=== PATIENT | female | born 2000 | race Caucasian/White ===

== ENCOUNTER 2020-07-18 15:21 | Emergency (ER) | payer BC ==
[2020-07-18 15:29] VITALS: TEMP 98
[2020-07-18] MEDS ORDERED: ONDANSETRON 4 MG/2 ML VIAL IVP STA (15:47)
[2020-07-18] MEDS ORDERED: SODIUM CHLORIDE 0.9% 1,000 ML IV STA (15:47)
[2020-07-18 16:11] LABS: Basophils % (A) 1 %; Eosinophils % (A) 1 %; HGB 13.2 gm/dL (11.4-16.0); Lymphocytes % (A) 48 %; MCH 30.9 pg (25.0-35.0); MCHC 33.7 g/dL (31.0-37.0); MCV 91.6 fL (80.0-100.0); Mean Platelet Volume 7.4; Monocytes # (A) 0.2 k/uL (0-1.0); Monocytes % (A) 4 %; Neutrophils # (A) 1.8 k/uL (1.3-7.7); Neutrophils % (A) 44 %; Platelet Count 257 k/uL (150-450); RBC 4.26 m/uL (3.80-5.40); WBC 4.1 k/uL (4.0-11.0)
[2020-07-18 16:12] LABS: Appearance,Urine Clear (Clear); Bilirubin,Urine Negative (Negative); Blood,Urine Negative (Negative); Color,Urine Light Yellow; Glucose,Urine (UA) Negative (Negative); Ketones,Urine Negative (Negative); Leukocyte Esterase,Urine Negative (Negative); Nitrite,Urine Negative (Negative); PH, Urine 6.5 (5.0-8.0); Protein,Urine Negative (Negative); Specific Gravity,Urine 1.006 (1.001-1.035); Urobilinogen,Urine <2.0 mg/dL (<2.0)
[2020-07-18 16:19] LABS: African American GFR (CKD) >90 (>60 ml/min/1.73 sqM); Anion Gap 9 mmol/L; Blood Urea Nitrogen 10 mg/dL (7-17); Calcium 9.3 mg/dL (8.4-10.2); Carbon Dioxide 26 mmol/L (22-30); Chloride 105 mmol/L (98-107); Glucose 89 mg/dL (74-99); Non-African American GFR(CKD) >90 (>60 ml/min/1.73 sqM); Sodium 140 mmol/L (137-145); Total Protein 7.7 g/dL (6.3-8.2)
[2020-07-18 16:20] LABS: ALT 10 U/L (4-34); AST 22 U/L (14-36); Albumin 4.8 g/dL (3.5-5.0); Alkaline Phosphatase 52 U/L (38-126); Amylase 59 U/L (30-110); Total Bilirubin 1.1 mg/dL (0.2-1.3)
[2020-07-18] MEDS ORDERED: diphenhydrAMINE 50 MG/ML 1 ML VIAL IVP STA (16:50)
[2020-07-18] MEDS ORDERED: METOCLOPRAMIDE 5 MG/ML 2 ML VIAL IVP STA (16:50)
--- NOTE | 2020-07-18 16:54 | ED ---
General Adult HPI - General Chief complaint: Abdominal Pain Stated complaint: abdominal Pain Time Seen by Provider: 07/18/20 15:33 Source: patient, RN notes reviewed Mode of arrival: ambulatory Limitations: no limitations - History of Present Illness Initial comments: 20-year-old female with a past medical history of IBS presents to the emergency room for nausea vomiting diarrhea. Patient reports that on Tuesday night she ate seafood at a restaurant. States the next day her and her friend started to feel nauseous. Patient reports that she was nauseous all day on Tuesday. She started to have diarrhea and vomiting yesterday. Patient reports that diarrhea and vomiting have continued today. Patient states she is really having minimal abdominal discomfort mostly in the epigastric area. Otherwise denies abdominal pain. Denies fevers.Patient has no other complaints at this time including shortness of breath, chest pain, abdominal pain, headache, or visual changes. - Related Data Previous Rx's Medication Instructions Recorded Ondansetron [Zofran ODT] 4 mg PO Q8HR PRN #15 tab 07/18/20 Allergies Allergy/AdvReac Type Severity Reaction Status Date / Time [place] And Derivatives Allergy Nausea & Verified 07/18/20 15:57 [[place]] Vomiting peppermint Allergy Anaphylaxis Verified 07/18/20 15:57 Review of Systems ROS Statement: Those systems with pertinent positive or pertinent negative responses have been documented in the HPI. ROS Other: All systems not noted in ROS Statement are negative. Past Medical History Past Medical History: No Reported History Additional Past Medical History / Comment(s): IBS, internal and external hemorrhoids History of Any Multi-Drug Resistant Organisms: None Reported Past Surgical History: No Surgical Hx Reported Additional Past Surgical History / Comment(s): colonoscopy Past Psychological History: Anxiety, Depression Smoking Status: Never smoker Past Alcohol Use History: Occasional Past Drug Use History: Marijuana General Exam Limitations: no limitations General appearance: alert, in no apparent distress Head exam: Present: atraumatic, normocephalic, normal inspection Eye exam: Present: normal appearance, PERRL, EOMI. Absent: scleral icterus, conjunctival injection, periorbital swelling ENT exam: Present: normal exam, mucous membranes moist Neck exam: Present: normal inspection, full ROM. Absent: tenderness, meningismus, lymphadenopathy Respiratory exam: Present: normal lung sounds bilaterally. Absent: respiratory distress, wheezes, rales, rhonchi, stridor Cardiovascular Exam: Present: regular rate, normal rhythm, normal heart sounds. Absent: systolic murmur, diastolic murmur, rubs, gallop, clicks GI/Abdominal exam: Present: soft, normal bowel sounds. Absent: distended, tenderness, guarding, rebound, rigid Neurological exam: Present: alert Course Vital Signs 07/18/20 15:26 Temperature 98 F Pulse Rate 100 Respiratory 18 Rate Blood Pressure 130/93 O2 Sat by Pulse 100 Oximetry Medical Decision Making - Medical Decision Making Vitals are stable. Physical exam is unremarkable. No significant abdominal tenderness.. CBC CMP and amylase and lipase are all within normal limits. Urinalysis is negative. HCG is negative. Patient was given Zofran and had some improvement in nausea however still continued to have mild nausea. No episodes of vomiting. She was given Reglan. Patient will be discharged home after fluids with Zofran. She will follow up with her doctor. She will return here for any worsening symptoms. - Lab Data Result diagrams: 07/18/20 16:00 07/18/20 16:00 Lab Results 07/18/20 07/18/20 07/18/20 Range/Units 16:00 16:00 16:00 WBC 4.1 (4.0-11.0) k/uL RBC 4.26 (3.80-5.40) m/uL Hgb 13.2 (11.4-16.0) gm/dL Hct 39.0 (34.0-46.0) % MCV 91.6 (80.0-100.0) fL MCH 30.9 (25.0-35.0) pg MCHC 33.7 (31.0-37.0) g/dL RDW 12.0 (11.5-15.5) % Plt Count 257 (150-450) k/uL Neutrophils % 44 % Lymphocytes % 48 % Monocytes % 4 % Eosinophils % 1 % Basophils % 1 % Neutrophils # 1.8 (1.3-7.7) k/uL Lymphocytes # 2.0 (1.0-4.8) k/uL Monocytes # 0.2 (0-1.0) k/uL Eosinophils # 0.0 (0-0.7) k/uL Basophils # 0.0 (0-0.2) k/uL Sodium (137-145) mmol/L Potassium (3.5-5.1) mmol/L Chloride (98-107) mmol/L Carbon Dioxide (22-30) mmol/L Anion Gap mmol/L BUN (7-17) mg/dL Creatinine (0.52-1.04) mg/dL Est GFR (CKD-EPI)AfAm (>60 ml/min/1.73 sqM) Est GFR (CKD-EPI)NonAf (>60 ml/min/1.73 sqM) Glucose (74-99) mg/dL Calcium (8.4-10.2) mg/dL Total Bilirubin (0.2-1.3) mg/dL AST (14-36) U/L ALT (4-34) U/L Alkaline Phosphatase (38-126) U/L Total Protein (6.3-8.2) g/dL Albumin (3.5-5.0) g/dL Amylase (30-110) U/L Lipase (23-300) U/L Urine Color Light Yellow Urine Appearance Clear (Clear) Urine pH 6.5 (5.0-8.0) Ur Specific [place] 1.006 (1.001-1.035) Urine Protein Negative (Negative) Urine Glucose (UA) Negative (Negative) Urine Ketones Negative (Negative) Urine Blood Negative (Negative) Urine Nitrite Negative (Negative) Urine Bilirubin Negative (Negative) Urine Urobilinogen <2.0 (<2.0) mg/dL Ur Leukocyte Esterase Negative (Negative) Urine HCG, Qual Not Detected (Not Detectd) 07/18/20 Range/Units 16:00 WBC (4.0-11.0) k/uL RBC (3.80-5.40) m/uL Hgb (11.4-16.0) gm/dL Hct (34.0-46.0) % MCV (80.0-100.0) fL MCH (25.0-35.0) pg MCHC (31.0-37.0) g/dL RDW (11.5-15.5) % Plt Count (150-450) k/uL Neutrophils % % Lymphocytes % % Monocytes % % Eosinophils % % Basophils % % Neutrophils # (1.3-7.7) k/uL Lymphocytes # (1.0-4.8) k/uL Monocytes # (0-1.0) k/uL Eosinophils # (0-0.7) k/uL Basophils # (0-0.2) k/uL Sodium 140 (137-145) mmol/L Potassium 4.0 (3.5-5.1) mmol/L Chloride 105 (98-107) mmol/L Carbon Dioxide 26 (22-30) mmol/L Anion Gap 9 mmol/L BUN 10 (7-17) mg/dL Creatinine 0.85 (0.52-1.04) mg/dL Est GFR (CKD-EPI)AfAm >90 (>60 ml/min/1.73 sqM) Est GFR (CKD-EPI)NonAf >90 (>60 ml/min/1.73 sqM) Glucose 89 (74-99) mg/dL Calcium 9.3 (8.4-10.2) mg/dL Total Bilirubin 1.1 (0.2-1.3) mg/dL AST 22 (14-36) U/L ALT 10 (4-34) U/L Alkaline Phosphatase 52 (38-126) U/L Total Protein 7.7 (6.3-8.2) g/dL Albumin 4.8 (3.5-5.0) g/dL Amylase 59 (30-110) U/L Lipase 157 (23-300) U/L Urine Color Urine Appearance (Clear) Urine pH (5.0-8.0) Ur Specific [place] (1.001-1.035) Urine Protein (Negative) Urine Glucose (UA) (Negative) Urine Ketones (Negative) Urine Blood (Negative) Urine Nitrite (Negative) Urine Bilirubin (Negative) Urine Urobilinogen (<2.0) mg/dL Ur Leukocyte Esterase (Negative) Urine HCG, Qual (Not Detectd) Disposition Clinical Impression: Nausea vomiting and diarrhea Disposition: HOME SELF-CARE Condition: Good Instructions (If sedation given, give patient instructions): Acute Nausea and Vomiting (ED), Acute Diarrhea (ED) Additional Instructions: Take Zofran as needed for nausea. Drink plenty of fluids. Follow-up with your doctor in one to 2 days for a recheck. If symptoms are worsening return to the emergency room. Prescriptions: Ondansetron [Zofran ODT] 4 mg PO Q8HR PRN #15 tab PRN Reason: Nausea Is patient prescribed a controlled substance at d/c from ED?: No Referrals: Josh Everett MD [REFERRING] - 1-2 days Time of Disposition: 16:53
[2020-07-18 17:36] VITALS: BP 132/87; PULSE 71; RESP 16
== END 2020-07-18 17:36 | disposition home or self-care (01) ==
LOC: EC 15:21
DX: R11.2 Nausea with vomiting, unspecified (principal); R19.7 Diarrhea, unspecified; Z91.018 Allergy to other foods
CPT/HCPCS: 36415; 80053; 82150; 83690; 85025; 81003; 81025; 99283; 96374; 96375 ×2; 96361; J1200; J2765; J2405

== ENCOUNTER 2020-07-19 21:26 | Emergency (ER) | payer BC ==
[2020-07-19 21:51] VITALS: RESP 18
[2020-07-19] MEDS ORDERED: SODIUM CHLORIDE 0.9% 500 ML 500 ML IV STA (22:09)
[2020-07-19] MEDS ORDERED: PROMETHAZINE INJ 25 MG in SODIUM CHLORIDE 0.9% 50 ML IVPB ONE (22:30)
--- NOTE | 2020-07-19 22:31 | ED ---
Nausea/Vomiting/Diarrhea HPI - General Chief complaint: Nausea/Vomiting/Diarrhea Stated complaint: Nausea, vomiting Time Seen by Provider: 07/19/20 22:03 Source: patient Mode of arrival: ambulatory Limitations: no limitations - History of Present Illness Initial comments: This patient is a 20-year-old woman who presents to be evaluated for vomiting diarrhea and abdominal pain. The patient states that her symptoms started Tuesday night with diarrhea. Over the course of the following day she had about 9 watery bowel movements. She also was noting some diffuse abdominal cramping that was intermittent. On the following day she began having vomiting as well. Patient was seen here, had Zofran and IV fluids and was feeling a little better. When she went home she had a resumption of the vomiting and so presents to have reevaluation. MD complaint: nausea, vomiting, diarrhea, abdominal pain Onset/Timin -: days(s) Description of Vomiting: food contents Description of Diarrhea: water Associated Abdominal Pain: Yes Location: diffuse Severity: mild Quality: cramping Consistency: intermittent Improves with: none Worsens with: none Associated Symptoms: denies other symptoms - Related Data Previous Rx's Medication Instructions Recorded Ondansetron [Zofran ODT] 4 mg PO Q8HR PRN #15 tab 07/18/20 Promethazine [Phenergan] 25 mg PO Q6HR PRN #12 tablet 07/20/20 Allergies Allergy/AdvReac Type Severity Reaction Status Date / Time [place] And Derivatives Allergy Nausea & Verified 07/19/20 21:51 [[place]] Vomiting peppermint Allergy Anaphylaxis Verified 07/19/20 21:51 Review of Systems ROS Statement: Those systems with pertinent positive or pertinent negative responses have been documented in the HPI. ROS Other: All systems not noted in ROS Statement are negative. Constitutional: Denies: fever, chills Respiratory: Denies: cough, dyspnea Cardiovascular: Denies: chest pain, palpitations, edema Gastrointestinal: Reports: abdominal pain, nausea, vomiting, diarrhea. Denies: hematemesis, melena, hematochezia Genitourinary: Denies: dysuria, frequency, hematuria, discharge, abnormal menses Musculoskeletal: Denies: back pain Skin: Denies: rash Neurological: Denies: headache, weakness, numbness Past Medical History Past Medical History: No Reported History Additional Past Medical History / Comment(s): IBS, internal and external hemorrhoids History of Any Multi-Drug Resistant Organisms: None Reported Past Surgical History: No Surgical Hx Reported Additional Past Surgical History / Comment(s): colonoscopy Past Psychological History: Anxiety, Depression Smoking Status: Never smoker Past Alcohol Use History: Occasional Past Drug Use History: Marijuana General Exam Limitations: no limitations General appearance: alert, in no apparent distress Head exam: Present: atraumatic, normocephalic Eye exam: Present: normal appearance. Absent: scleral icterus, conjunctival injection ENT exam: Present: normal oropharynx Respiratory exam: Present: normal lung sounds bilaterally. Absent: respiratory distress, wheezes, rales, rhonchi, stridor Cardiovascular Exam: Present: regular rate, normal rhythm, normal heart sounds. Absent: systolic murmur, diastolic murmur, rubs, gallop GI/Abdominal exam: Present: soft, normal bowel sounds. Absent: distended, tenderness, guarding, rebound, rigid, mass, pulsatile mass, hernia Extremities exam: Present: normal inspection, normal capillary refill. Absent: pedal edema, calf tenderness Back exam: Present: normal inspection. Absent: CVA tenderness (R), CVA tenderness (L) Neurological exam: Present: alert Skin exam: Present: warm, dry, intact, normal color. Absent: rash Course Vital Signs 07/19/20 21:48 Temperature 98.5 F Pulse Rate 83 Respiratory 18 Rate Blood Pressure 125/82 O2 Sat by Pulse 99 Oximetry Medical Decision Making - Lab Data Result diagrams: 07/19/20 22:14 07/19/20 22:14 Lab Results 07/19/20 07/19/20 07/19/20 Range/Units 22:14 22:14 22:14 WBC 5.2 (4.0-11.0) k/uL RBC 4.34 (3.80-5.40) m/uL Hgb 13.3 (11.4-16.0) gm/dL Hct 40.0 (34.0-46.0) % MCV 92.2 (80.0-100.0) fL MCH 30.7 (25.0-35.0) pg MCHC 33.2 (31.0-37.0) g/dL RDW 12.6 (11.5-15.5) % Plt Count 254 (150-450) k/uL Neutrophils % 31 % Lymphocytes % 60 % Monocytes % 5 % Eosinophils % 2 % Basophils % 1 % Neutrophils # 1.6 (1.3-7.7) k/uL Lymphocytes # 3.1 (1.0-4.8) k/uL Monocytes # 0.3 (0-1.0) k/uL Eosinophils # 0.1 (0-0.7) k/uL Basophils # 0.0 (0-0.2) k/uL Manual Slide Review Performed Large Platelets Present Sodium 139 (137-145) mmol/L Potassium 3.9 (3.5-5.1) mmol/L Chloride 108 H (98-107) mmol/L Carbon Dioxide 25 (22-30) mmol/L Anion Gap 6 mmol/L BUN 7 (7-17) mg/dL Creatinine 0.84 (0.52-1.04) mg/dL Est GFR (CKD-EPI)AfAm >90 (>60 ml/min/1.73 sqM) Est GFR (CKD-EPI)NonAf >90 (>60 ml/min/1.73 sqM) Glucose 94 (74-99) mg/dL Calcium 9.3 (8.4-10.2) mg/dL Total Bilirubin 1.1 (0.2-1.3) mg/dL AST 24 (14-36) U/L ALT 10 (4-34) U/L Alkaline Phosphatase 42 (38-126) U/L Total Protein 7.3 (6.3-8.2) g/dL Albumin 4.6 (3.5-5.0) g/dL Amylase 46 (30-110) U/L Lipase 173 (23-300) U/L Urine Color Light Yellow Urine Appearance Clear (Clear) Urine pH 6.5 (5.0-8.0) Ur Specific [place] 1.007 (1.001-1.035) Urine Protein Negative (Negative) Urine Glucose (UA) Negative (Negative) Urine Ketones Negative (Negative) Urine Blood Negative (Negative) Urine Nitrite Negative (Negative) Urine Bilirubin Negative (Negative) Urine Urobilinogen <2.0 (<2.0) mg/dL Ur Leukocyte Esterase Negative (Negative) Disposition Clinical Impression: Gastroenteritis Disposition: HOME SELF-CARE Condition: Good Instructions (If sedation given, give patient instructions): Acute Nausea and Vomiting (ED) Prescriptions: Promethazine [Phenergan] 25 mg PO Q6HR PRN #12 tablet PRN Reason: Vomiting Is patient prescribed a controlled substance at d/c from ED?: No Referrals: None,Stated [Primary Care Provider] - 1-2 days
[2020-07-19 22:41] LABS: Appearance,Urine Clear (Clear); Bilirubin,Urine Negative (Negative); Blood,Urine Negative (Negative); Color,Urine Light Yellow; Glucose,Urine (UA) Negative (Negative); Ketones,Urine Negative (Negative); Leukocyte Esterase,Urine Negative (Negative); Nitrite,Urine Negative (Negative); PH, Urine 6.5 (5.0-8.0); Protein,Urine Negative (Negative); Specific Gravity,Urine 1.007 (1.001-1.035); Urobilinogen,Urine <2.0 mg/dL (<2.0)
[2020-07-19 22:49] LABS: Basophils % (A) 1 %; Eosinophils # (A) 0.1 k/uL (0-0.7); Eosinophils % (A) 2 %; HGB 13.3 gm/dL (11.4-16.0); Lymphocytes # (A) 3.1 k/uL (1.0-4.8); Lymphocytes % (A) 60 %; MCH 30.7 pg (25.0-35.0); MCHC 33.2 g/dL (31.0-37.0); MCV 92.2 fL (80.0-100.0); Mean Platelet Volume 7.6; Monocytes # (A) 0.3 k/uL (0-1.0); Monocytes % (A) 5 %; Neutrophils # (A) 1.6 k/uL (1.3-7.7); Neutrophils % (A) 31 %; Platelet Count 254 k/uL (150-450); RBC 4.34 m/uL (3.80-5.40); RDW 12.6 % (11.5-15.5); WBC 5.2 k/uL (4.0-11.0)
[2020-07-19 22:57] LABS: ALT 10 U/L (4-34); AST 24 U/L (14-36); African American GFR (CKD) >90 (>60 ml/min/1.73 sqM); Albumin 4.6 g/dL (3.5-5.0); Alkaline Phosphatase 42 U/L (38-126); Amylase 46 U/L (30-110); Anion Gap 6 mmol/L; Blood Urea Nitrogen 7 mg/dL (7-17); Calcium 9.3 mg/dL (8.4-10.2); Carbon Dioxide 25 mmol/L (22-30); Chloride 108 mmol/L (98-107); Glucose 94 mg/dL (74-99); Non-African American GFR(CKD) >90 (>60 ml/min/1.73 sqM); Potassium 3.9 mmol/L (3.5-5.1); Sodium 139 mmol/L (137-145); Total Bilirubin 1.1 mg/dL (0.2-1.3); Total Protein 7.3 g/dL (6.3-8.2)
[2020-07-19 23:57] LABS: Large Platelets Present
--- NOTE | 2020-07-20 00:30 | CT ---
EXAMINATION TYPE: CT abdomen pelvis w con DATE OF EXAM: 07/20/2020 COMPARISON: None HISTORY: epigastric pain CT DLP: 497.2 mGycm Automated exposure control for dose reduction was used. CONTRAST: Performed with IV Contrast, patient injected with 100 mL of Isovue 300. Lung bases are clear. There is no pleural effusion. Heart size is normal. There is no pericardial eff usion. Liver and spleen appear intact. The bile ducts are not dilated. There is impacted stomach. There is n o pancreatic mass. Gallbladder is contracted. There is no adrenal mass. Kidneys show satisfactory contrast opacification. There is no hydronephrosi s. Delayed images show normal renal excretion. Ureters are not dilated. Bladder distends smoothly. Th ere is no inguinal hernia. There is some free fluid in the cul-de-sac. Uterus is retroverted. There i s no evidence of a pelvic mass. There is no mesenteric edema. There is no ascites or free air. There is no bowel obstruction. Appendi x is not seen. There is no sign of thickened appendix. Lumbar vertebra have normal spacing. There is a slight lumbar levoscoliosis. Posterior elements are i ntact. There is no compression fracture. Bony pelvis is intact. IMPRESSION: There is small amount of low-density fluid in the cul-de-sac. This could be physiologic. Otherwise ne gative exam.
[2020-07-20 01:06] VITALS: BP 95/54; PULSE 54; TEMP 97
== END 2020-07-20 01:06 | disposition home or self-care (01) ==
LOC: EC 21:26
DX: K52.9 Noninfective gastroenteritis and colitis, unspecified (principal); Z91.018 Allergy to other foods; Z87.19 Personal history of other diseases of the digestive system
CPT/HCPCS: 36415; 80053; 82150; 83690; 85025; 81003; 74177; 96365; 99284; J2550; Q9967; 96374

== ENCOUNTER 2021-04-09 19:47 | Observation (INO) | payer BC ==
[2021-04-09] MEDS ORDERED: SODIUM CHLORIDE 0.9% 1,000 ML IV STA ×2 (21:35→23:59)
[2021-04-09] MEDS ORDERED: diphenhydrAMINE 50 MG/ML 1 ML VIAL IVP STA (21:35)
[2021-04-09] MEDS ORDERED: ONDANSETRON 4 MG/2 ML VIAL IVP STA (21:35)
[2021-04-09] MEDS ORDERED: MORPHINE SULFATE 4 MG/ML SYRINGE IV STA (21:35)
[2021-04-09 22:07] LABS: Basophils % (A) 0 %; Eosinophils % (A) 0 %; HCT 31.8 % (34.0-46.0); HGB 11.4 gm/dL (11.4-16.0); Lymphocytes % (A) 24 %; MCH 32.5 pg (25.0-35.0); MCV 90.1 fL (80.0-100.0); Mean Platelet Volume 7.7; Monocytes # (A) 0.4 k/uL (0-1.0); Monocytes % (A) 5 %; Neutrophils % (A) 69 %; Platelet Count 248 k/uL (150-450); RBC 3.53 m/uL (3.80-5.40); RDW 12.2 % (11.5-15.5); WBC 8.6 k/uL (4.0-11.0)
[2021-04-09 22:18] LABS: ALT 13 U/L (4-34); AST 26 U/L (14-36); African American GFR (CKD) >90 (>60 ml/min/1.73 sqM); Albumin 4.8 g/dL (3.5-5.0); Alkaline Phosphatase 54 U/L (38-126); Amylase 60 U/L (30-110); Anion Gap 14 mmol/L; Blood Urea Nitrogen 11 mg/dL (7-17); Calcium 9.8 mg/dL (8.4-10.2); Carbon Dioxide 22 mmol/L (22-30); Chloride 104 mmol/L (98-107); Glucose 111 mg/dL (74-99); Lipase 103 U/L (23-300); Non-African American GFR(CKD) >90 (>60 ml/min/1.73 sqM); Potassium 4.2 mmol/L (3.5-5.1); Sodium 140 mmol/L (137-145); Total Bilirubin 1.8 mg/dL (0.2-1.3); Total Protein 7.5 g/dL (6.3-8.2)
--- NOTE | 2021-04-09 22:35 | ED ---
Abdominal Pain HPI - General Source: patient, RN notes reviewed Mode of arrival: ambulatory Limitations: no limitations <Hossein Hernandez - Last Filed: 04/09/21 23:19> <Gregor Hays - Last Filed: 04/11/21 00:49> - General Chief Complaint: Abdominal Pain Stated Complaint: chest & abd pain Time Seen by Provider: 04/09/21 21:25 - History of Present Illness Initial Comments: Patient is a 20-year-old female that presents to the emergency department complaining of severe abdominal pain. She notes that after sexual intercourse tonight she noted that she had some severe abdominal pain starting her lower abdomen that eventually radiated up towards her chest and bilateral shoulders. She notes that this feeling made it feel like she was short of breath and her chest was tight. She also noted that she has had several bouts of diarrhea unexpected appeared she noted that she woke up last night to go to the bathroom walked in the bathroom woke up on the floor in a puddle of diarrhea. She notes that she does have a history of ovarian cyst that ruptured in the past and had to come emergency room for. She did note that she was nauseous and vomiting yesterday evening but has not today. She denied any chest pain shortness of breath headache constipation fever fatigue chills. (Hossein Hernandez) - Related Data Home Medications Medication Instructions Recorded Confirmed QUEtiapine [SEROquel] 100 mg PO HS 04/09/21 04/09/21 Allergies Allergy/AdvReac Type Severity Reaction Status Date / Time [place] And Derivatives Allergy Nausea & Verified 04/10/21 14:41 [[place]] Vomiting peppermint Allergy Anaphylaxis Verified 04/10/21 14:41 Review of Systems ROS Other: All systems not noted in ROS Statement are negative. <Hossein Hernandez - Last Filed: 04/09/21 23:19> ROS Other: All systems not noted in ROS Statement are negative. <Gregor Hays - Last Filed: 04/11/21 00:49> ROS Statement: Those systems with pertinent positive or pertinent negative responses have been documented in the HPI. Past Medical History Past Medical History: No Reported History Additional Past Medical History / Comment(s): IBS, internal and external hemorrhoids History of Any Multi-Drug Resistant Organisms: None Reported Past Surgical History: No Surgical Hx Reported Additional Past Surgical History / Comment(s): colonoscopy Past Psychological History: Anxiety, Depression Smoking Status: Never smoker Past Alcohol Use History: Occasional Past Drug Use History: Marijuana <Hossein Hernandez - Last Filed: 04/09/21 23:19> General Exam Limitations: no limitations General appearance: alert, in no apparent distress Head exam: Present: atraumatic, normocephalic, normal inspection Eye exam: Present: normal appearance, PERRL, EOMI. Absent: scleral icterus, conjunctival injection, periorbital swelling Neck exam: Present: normal inspection Respiratory exam: Present: normal lung sounds bilaterally. Absent: respiratory distress, wheezes, rales, rhonchi, stridor Cardiovascular Exam: Present: regular rate, normal rhythm, normal heart sounds. Absent: systolic murmur, diastolic murmur, rubs, gallop, clicks GI/Abdominal exam: Present: soft, tenderness (Very tender to light palpation in all quadrants), guarding, normal bowel sounds. Absent: distended, rebound, rigid, mass Extremities exam: Present: normal inspection, full ROM, normal capillary refill. Absent: tenderness, pedal edema, joint swelling, calf tenderness Neurological exam: Present: alert, oriented X3 Psychiatric exam: Present: normal affect, normal mood Skin exam: Present: warm, dry, intact, normal color. Absent: rash <Hossein Hernandez - Last Filed: 04/09/21 23:19> General appearance: alert, anxious, in distress Head exam: Present: atraumatic, normocephalic, normal inspection Eye exam: Present: normal appearance, PERRL, EOMI. Absent: scleral icterus, conjunctival injection, periorbital swelling ENT exam: Present: normal exam, mucous membranes moist Neck exam: Present: normal inspection. Absent: tenderness, meningismus, lymphadenopathy Respiratory exam: Present: normal lung sounds bilaterally. Absent: respiratory distress, wheezes, rales, rhonchi, stridor Cardiovascular Exam: Present: normal rhythm, tachycardia, normal heart sounds. Absent: systolic murmur, diastolic murmur, rubs, gallop, clicks GI/Abdominal exam: Present: tenderness, guarding, normal bowel sounds. Absent: distended, rebound, rigid Extremities exam: Present: normal inspection, full ROM, normal capillary refill. Absent: tenderness, pedal edema, joint swelling, calf tenderness Back exam: Present: normal inspection Neurological exam: Present: alert, oriented X3, CN II-XII intact Psychiatric exam: Present: normal affect, normal mood Skin exam: Present: warm, dry, intact, normal color. Absent: rash <Gregor Hays - Last Filed: 04/11/21 00:49> Course <Gregor Hays - Last Filed: 04/11/21 00:49> Vital Signs 04/09/21 04/09/21 04/09/21 20:28 21:55 23:22 Temperature 98.8 F Pulse Rate 115 H 92 90 Respiratory 20 18 18 Rate Blood Pressure 146/89 118/72 123/71 O2 Sat by Pulse 100 99 98 Oximetry 04/10/21 00:48 Temperature Pulse Rate 95 Respiratory 16 Rate Blood Pressure 113/69 O2 Sat by Pulse 98 Oximetry - Reevaluation(s) Reevaluation #1: Medical records reviewed Symptoms are significantly improved here in the ER Patient informed of results and questions answered Patient is continuously reevaluated no vaginal bleeding (Gregor Hays) - Consultations Consultation #1: Spoke with on-call OB who will continue today. Treatment symptom management treatment currently, will value patient of morning with repeat CBC (Gregor Hays) Medical Decision Making - Lab Data Result diagrams: 04/09/21 22:01 04/09/21 22:01 - EKG Data -: EKG Interpreted by Me EKG shows normal: sinus rhythm Rate: tachycardia - Radiology Data Radiology results: report reviewed, image reviewed <Hossein Hernandez - Last Filed: 04/09/21 23:19> - Lab Data Result diagrams: 04/10/21 18:11 04/09/21 22:01 - EKG Data -: EKG Interpreted by Me (EKG is sinus tachycardia 104 AR 132 QRS 82 QTC 439) - Radiology Data Radiology results: report reviewed (CT abdomen and pelvis does show positive blood in the abdomen likely ruptured ovarian cyst) <Gregor Hays - Last Filed: 04/11/21 00:49> - Medical Decision Making 20-year-old female complaining of abdominal pain starting in the lower abdomen that radiates to her chest. Labs, EKG, chest x-ray, CT of the abdomen and pelvis, 50 mg of Benadryl, 4 mg of morphine, 4 g of Zofran, 1 L normal saline ordered. Labs: Lactic acid 2.1, patient receiving IV fluids currently. Rest of labs unremarkable. (Hossein Hernandez) - Lab Data Lab Results 04/09/21 04/09/21 04/09/21 Range/Units 22:01 22:01 22:01 WBC 8.6 (4.0-11.0) k/uL RBC 3.53 L (3.80-5.40) m/uL Hgb 11.4 (11.4-16.0) gm/dL Hct 31.8 L (34.0-46.0) % MCV 90.1 (80.0-100.0) fL MCH 32.5 (25.0-35.0) pg MCHC 36.0 (31.0-37.0) g/dL RDW 12.2 (11.5-15.5) % Plt Count 248 (150-450) k/uL MPV 7.7 Neutrophils % 69 % Lymphocytes % 24 % Monocytes % 5 % Eosinophils % 0 % Basophils % 0 % Neutrophils # 6.0 (1.3-7.7) k/uL Lymphocytes # 2.0 (1.0-4.8) k/uL Monocytes # 0.4 (0-1.0) k/uL Eosinophils # 0.0 (0-0.7) k/uL Basophils # 0.0 (0-0.2) k/uL Sodium 140 (137-145) mmol/L Potassium 4.2 (3.5-5.1) mmol/L Chloride 104 (98-107) mmol/L Carbon Dioxide 22 (22-30) mmol/L Anion Gap 14 mmol/L BUN 11 (7-17) mg/dL Creatinine 0.71 (0.52-1.04) mg/dL Est GFR (CKD-EPI)AfAm >90 (>60 ml/min/1.73 sqM) Est GFR (CKD-EPI)NonAf >90 (>60 ml/min/1.73 sqM) Glucose 111 H (74-99) mg/dL Lactic Ac Sepsis Rflx Plasma Lactic Acid Froylan 2.1 H* (0.7-2.0) mmol/L Calcium 9.8 (8.4-10.2) mg/dL Total Bilirubin 1.8 H (0.2-1.3) mg/dL AST 26 (14-36) U/L ALT 13 (4-34) U/L Alkaline Phosphatase 54 (38-126) U/L Total Protein 7.5 (6.3-8.2) g/dL Albumin 4.8 (3.5-5.0) g/dL Amylase 60 (30-110) U/L Lipase 103 (23-300) U/L Urine Color Urine Appearance (Clear) Urine pH (5.0-8.0) Ur Specific [place] (1.001-1.035) Urine Protein (Negative) Urine Glucose (UA) (Negative) Urine Ketones (Negative) Urine Blood (Negative) Urine Nitrite (Negative) Urine Bilirubin (Negative) Urine Urobilinogen (<2.0) mg/dL Ur Leukocyte Esterase (Negative) Urine RBC (0-5) /hpf Urine WBC (0-5) /hpf Ur Squamous Epith Cells (0-4) /hpf Urine Bacteria (None) /hpf Urine Mucus (None) /hpf Urine HCG, Qual (Not Detectd) Blood Type Blood Type Confirm Blood Type Recheck Bld Type Recheck Status Antibody Screen Spec Expiration Date 04/09/21 04/09/21 04/09/21 Range/Units 22:16 22:16 22:19 WBC (4.0-11.0) k/uL RBC (3.80-5.40) m/uL Hgb (11.4-16.0) gm/dL Hct (34.0-46.0) % MCV (80.0-100.0) fL MCH (25.0-35.0) pg MCHC (31.0-37.0) g/dL RDW (11.5-15.5) % Plt Count (150-450) k/uL MPV Neutrophils % % Lymphocytes % % Monocytes % % Eosinophils % % Basophils % % Neutrophils # (1.3-7.7) k/uL Lymphocytes # (1.0-4.8) k/uL Monocytes # (0-1.0) k/uL Eosinophils # (0-0.7) k/uL Basophils # (0-0.2) k/uL Sodium (137-145) mmol/L Potassium (3.5-5.1) mmol/L Chloride (98-107) mmol/L Carbon Dioxide (22-30) mmol/L Anion Gap mmol/L BUN (7-17) mg/dL Creatinine (0.52-1.04) mg/dL Est GFR (CKD-EPI)AfAm (>60 ml/min/1.73 sqM) Est GFR (CKD-EPI)NonAf (>60 ml/min/1.73 sqM) Glucose (74-99) mg/dL Lactic Ac Sepsis Rflx Y Plasma Lactic Acid Froylan (0.7-2.0) mmol/L Calcium (8.4-10.2) mg/dL Total Bilirubin (0.2-1.3) mg/dL AST (14-36) U/L ALT (4-34) U/L Alkaline Phosphatase (38-126) U/L Total Protein (6.3-8.2) g/dL Albumin (3.5-5.0) g/dL Amylase (30-110) U/L Lipase (23-300) U/L Urine Color Yellow Urine Appearance Cloudy H (Clear) Urine pH 5.5 (5.0-8.0) Ur Specific [place] 1.037 H (1.001-1.035) Urine Protein 1+ H (Negative) Urine Glucose (UA) Negative (Negative) Urine Ketones 1+ H (Negative) Urine Blood Negative (Negative) Urine Nitrite Negative (Negative) Urine Bilirubin Negative (Negative) Urine Urobilinogen <2.0 (<2.0) mg/dL Ur Leukocyte Esterase Negative (Negative) Urine RBC 1 (0-5) /hpf Urine WBC 3 (0-5) /hpf Ur Squamous Epith Cells 4 (0-4) /hpf Urine Bacteria Rare H (None) /hpf Urine Mucus Many H (None) /hpf Urine HCG, Qual Not Detected (Not Detectd) Blood Type Blood Type Confirm Blood Type Recheck Bld Type Recheck Status Antibody Screen Spec Expiration Date 04/10/21 04/10/21 Range/Units 00:18 00:20 WBC (4.0-11.0) k/uL RBC (3.80-5.40) m/uL Hgb (11.4-16.0) gm/dL Hct (34.0-46.0) % MCV (80.0-100.0) fL MCH (25.0-35.0) pg MCHC (31.0-37.0) g/dL RDW (11.5-15.5) % Plt Count (150-450) k/uL MPV Neutrophils % % Lymphocytes % % Monocytes % % Eosinophils % % Basophils % % Neutrophils # (1.3-7.7) k/uL Lymphocytes # (1.0-4.8) k/uL Monocytes # (0-1.0) k/uL Eosinophils # (0-0.7) k/uL Basophils # (0-0.2) k/uL Sodium (137-145) mmol/L Potassium (3.5-5.1) mmol/L Chloride (98-107) mmol/L Carbon Dioxide (22-30) mmol/L Anion Gap mmol/L BUN (7-17) mg/dL Creatinine (0.52-1.04) mg/dL Est GFR (CKD-EPI)AfAm (>60 ml/min/1.73 sqM) Est GFR (CKD-EPI)NonAf (>60 ml/min/1.73 sqM) Glucose (74-99) mg/dL Lactic Ac Sepsis Rflx Plasma Lactic Acid [place]ylan (0.7-2.0) mmol/L Calcium (8.4-10.2) mg/dL Total Bilirubin (0.2-1.3) mg/dL AST (14-36) U/L ALT (4-34) U/L Alkaline Phosphatase (38-126) U/L Total Protein (6.3-8.2) g/dL Albumin (3.5-5.0) g/dL Amylase (30-110) U/L Lipase (23-300) U/L Urine Color Urine Appearance (Clear) Urine pH (5.0-8.0) Ur Specific [place] (1.001-1.035) Urine Protein (Negative) Urine Glucose (UA) (Negative) Urine Ketones (Negative) Urine Blood (Negative) Urine Nitrite (Negative) Urine Bilirubin (Negative) Urine Urobilinogen (<2.0) mg/dL Ur Leukocyte Esterase (Negative) Urine RBC (0-5) /hpf Urine WBC (0-5) /hpf Ur Squamous Epith Cells (0-4) /hpf Urine Bacteria (None) /hpf Urine Mucus (None) /hpf Urine HCG, Qual (Not Detectd) Blood Type O Positive Blood Type Confirm O Positive Blood Type Recheck No Previous Record Bld Type Recheck Status CABO Indicated Antibody Screen NEGATIVE Spec Expiration Date 04/13/20212322 - EKG Data EKG Comments: Ventricular rate 104 bpm, AR interval 132 ms, QRS duration 82 ms, QTC 439 ms, PRT axes 62/88/25. Sinus tachycardia, otherwise normal ECG. (Hossein Hernandez) - Radiology Data Chest x-ray: Normal chest. (Hossein Hernandez) Critical Care Time Critical Care Time: Yes Total Critical Care Time: 31 <Gergor Hays - Last Filed: 04/11/21 00:49> Disposition <Hossein Hernandez - Last Filed: 04/09/21 23:19> Is patient prescribed a controlled substance at d/c from ED?: No <Gregor Hays - Last Filed: 04/11/21 00:49> Clinical Impression: Hemorrhagic ovarian cyst, Anemia, Ruptured ovarian cyst Disposition: ADMITTED IP TO THIS HOSP Condition: Serious
[2021-04-09 22:58] LABS: Appearance,Urine Cloudy (Clear); Bacteria,Urine Rare /hpf; Bilirubin,Urine Negative (Negative); Blood,Urine Negative (Negative); Color,Urine Yellow; Glucose,Urine (UA) Negative (Negative); Ketones,Urine 1+ (Negative); Leukocyte Esterase,Urine Negative (Negative); Mucus,Urine Many /hpf; Nitrite,Urine Negative (Negative); PH, Urine 5.5 (5.0-8.0); Protein,Urine 1+ (Negative); RBC,Urine 1 /hpf (0-5); Specific Gravity,Urine 1.037 (1.001-1.035); Squamous Epithelial Cell,Urine 4 /hpf (0-4); Urobilinogen,Urine <2.0 mg/dL (<2.0); WBC,Urine 3 /hpf (0-5)
--- NOTE | 2021-04-09 23:08 | XR ---
EXAMINATION TYPE: XR chest 1V portable DATE OF EXAM: 04/09/2021 COMPARISON: NONE HISTORY: Abdominal pain TECHNIQUE: Single view FINDINGS: Heart and mediastinum are normal. Lungs are clear. Diaphragm is normal. Bony thorax is inta ct. There is no pleural effusion or pneumothorax. There are chest leads. IMPRESSION: Normal chest.
--- NOTE | 2021-04-10 00:03 | CT ---
EXAMINATION TYPE: CT abdomen pelvis w con DATE OF EXAM: 04/09/2021 COMPARISON: 07/20/2020 HISTORY: pain CT DLP: 461.1 mGycm Automated exposure control for dose reduction was used. CONTRAST: Performed with IV Contrast, patient injected with 100 mL of Isovue 300. Lung bases are clear. There is no pleural effusion. Heart size is normal. There is no pericardial eff usion. Liver is intact. Spleen is intact. There is moderate amount of fluid throughout the abdomen. This has density of 38 and could BE hemorrhagic. There is 2 cm cystic area in the pelvis on the right side th at is probably ovarian cyst. Stomach is intact. There is no pancreatic mass. Gallbladder appears normal. The bile ducts are not di lated. There is no adrenal mass. Kidneys show satisfactory contrast opacification. There is no hydronephrosi s. Delayed images show normal renal excretion. There is no retroperitoneal adenopathy. Uterus is anteverted. There is somewhat irregular increased density in the posterior pelvis adjacent to the fluid which has a density of 69 and could be acute hemorrhage. This measures 7 x 4 cm. The pooja dder distends smoothly. I see no evidence of a bowel obstruction. There is no mesenteric edema. There is no evidence of free air. The rectum appears intact. Lumbar vertebra have normal alignment. Disc spaces are normal. Posterior elements are intact. Bony pe lvis is intact. There is nonvisualization of the appendix. There is no sign of thickened appendix. IMPRESSION: Large amount of fluid in the abdomen and pelvis with intermediate density consistent with hemorrhagic fluid. Large high attenuation areas in the pelvis consistent with acute blood clot. This exam was di scussed with Dr. Hays 12:00 AM.
[2021-04-10] MEDS ORDERED: MORPHINE SULFATE 4 MG/ML SYRINGE IVP STA (00:04)
[2021-04-10] MEDS ORDERED: NALOXONE 0.4 MG/ML 1 ML VIAL IV PRN (00:23)
[2021-04-10] MEDS ORDERED: ONDANSETRON 4 MG/2 ML VIAL IVP PRN (00:29)
[2021-04-10 00:47] LABS: INR 1.1 (<1.2); Partial Thromboplastin Time 22.9 sec (22.0-30.0); Prothrombin Time 11.9 sec (9.0-12.0)
[2021-04-10] MEDS: SODIUM CHLORIDE 0.9% 1,000 ML IV SCH ×5 (01:05→21:15)
[2021-04-10 01:25] LABS: Basophils % (A) 0 %; Eosinophils % (A) 0 %; HCT 28.3 % (34.0-46.0); HGB 10.1 gm/dL (11.4-16.0); Lymphocytes # (A) 2.7 k/uL (1.0-4.8); Lymphocytes % (A) 24 %; MCH 32.4 pg (25.0-35.0); MCHC 35.7 g/dL (31.0-37.0); MCV 90.9 fL (80.0-100.0); Mean Platelet Volume 8.4; Monocytes # (A) 0.5 k/uL (0-1.0); Monocytes % (A) 5 %; Neutrophils # (A) 7.7 k/uL (1.3-7.7); Neutrophils % (A) 70 %; Platelet Count 210 k/uL (150-450); RBC 3.11 m/uL (3.80-5.40); RDW 12.5 % (11.5-15.5); WBC 11.1 k/uL (4.0-11.0)
[2021-04-10] MEDS: MORPHINE SULFATE 4 MG/ML SYRINGE IV PRN ×3 (04:21→21:11)
[2021-04-10] MEDS: PANTOPRAZOLE 40 MG/10 ML VIAL IV SCH (08:25)
[2021-04-10] MEDS ORDERED: SODIUM CHLORIDE 0.9% 500 ML 500 ML IV ONE (11:00)
--- NOTE | 2021-04-10 11:09 | P.HPOB ---
History of Present Illness H&P Date: 04/10/21 Chief Complaint: Acute pelvic pain The patient is a 20-year-old 0 para 0 who presents to the emergency room with acute onset of pelvic pain following intercourse. The pain was significant enough that she actually had several episodes of nausea and vomiting and then presented to the emergency room. CAT scan was performed which demonstrated what appears to be free fluid which is likely blood and clot in the pelvis. She was hemodynamically stable at the time of admission and was admitted for observation with the presumptive diagnosis of hemorrhagic ruptured ovarian cyst. She is not currently on any form of contraception though she does use condoms regularly as well as withdrawal. She has used oral contraception the past and has had little success for improving any of her symptoms for which she was taking it. She does not wish to be . She reports she has had similar episodes to this in the past. Last menstrual period was approximately 2-3 weeks ago. test in the emergency room is negative. She currently denies any nausea and vom iting but does have moderate to significant discomfort requiring IV narcotics. Obstetrical history: 0 para 0, currently using condoms and withdrawal for contraception. Gynecologic history: Unremarkable with no history of any infections to include STDs. She has never had a gynecologic examination until presentation to the ER last night. Review of Systems Review of systems is confined to history of present illness. Past Medical History Past Medical History: No Reported History Additional Past Medical History / Comment(s): IBS, internal and external hemorrhoids History of Any Multi-Drug Resistant Organisms: None Reported Past Surgical History: No Surgical Hx Reported Additional Past Surgical History / Comment(s): colonoscopy Past Psychological History: Anxiety, Bipolar, Depression Additional Psychological History / Comment(s): diagnosed Bipolar II Smoking Status: Never smoker Past Alcohol Use History: Occasional Past Drug Use History: Marijuana Medications and Allergies Home Medications Medication Instructions Recorded Confirmed Type QUEtiapine [SEROquel] 100 mg PO HS 04/09/21 04/09/21 History Allergies Allergy/AdvReac Type Severity Reaction Status Date / Time [place] And Derivatives Allergy Nausea & Verified 04/09/21 22:01 [[place]] Vomiting peppermint Allergy Anaphylaxis Verified 04/09/21 22:01 Exam Vital Signs Temp Pulse Pulse Resp BP BP Pulse Ox 04/10/21 07:00 98.3 F 70 18 92/62 99 04/10/21 02:00 98.8 F 77 16 111/74 100 04/10/21 00:48 95 16 113/69 98 04/09/21 23:22 90 18 123/71 98 04/09/21 21:55 92 18 118/72 99 04/09/21 20:28 98.8 F 115 H 20 146/89 100 Intake and Output 04/09/21 04/10/21 04/10/21 22:59 06:59 14:59 Other: # Voids 1 Weight 52.163 kg 52.163 kg In general, this is a well-developed, well-nourished white female in no apparent distress though she does appear somewhat uncomfortable. Her heart has a r egular rhythm and rate without murmur. Her lungs are clear to auscultation bilaterally in all rodriguez. Her abdomen is nondistended, fairly firm with minimal upper quadrant tenderness but significant lower quadrant tenderness bilaterally with some guarding and rebound. Her extremities are without any cyanosis, clubbing, or edema and are nontender to palpation bilaterally. Pelvic examination is declined by the patient. Results Result Diagrams: 04/10/21 00:23 04/09/21 22:01 Abnormal Lab Results - Last 24 Hours (Table) 04/09/21 04/09/21 04/09/21 Range/Units 22:01 22:01 22:01 WBC (4.0-11.0) k/uL RBC 3.53 L (3.80-5.40) m/uL Hgb (11.4-16.0) gm/dL Hct 31.8 L (34.0-46.0) % Glucose 111 H (74-99) mg/dL Plasma Lactic Acid Froylan 2.1 H* (0.7-2.0) mmol/L Total Bilirubin 1.8 H (0.2-1.3) mg/dL Urine Appearance (Clear) Ur Specific [place] (1.001-1.035) Urine Protein (Negative) Urine Ketones (Negative) Urine Bacteria (None) /hpf Urine Mucus (None) /hpf 04/09/21 04/10/21 04/10/21 Range/Units 22:16 00:23 00:48 WBC 11.1 H (4.0-11.0) k/uL RBC 3.11 L (3.80-5.40) m/uL Hgb 10.1 L (11.4-16.0) gm/dL Hct 28.3 L (34.0-46.0) % Glucose (74-99) mg/dL Plasma Lactic Acid Froylan 2.1 H* (0.7-2.0) mmol/L Total Bilirubin (0.2-1.3) mg/dL Urine Appearance Cloudy H (Clear) Ur Specific [place] 1.037 H (1.001-1.035) Urine Protein 1+ H (Negative) Urine Ketones 1+ H (Negative) Urine Bacteria Rare H (None) /hpf Urine Mucus Many H (None) /hpf 04/10/21 Range/Units 04:18 WBC (4.0-11.0) k/uL RBC (3.80-5.40) m/uL Hgb (11.4-16.0) gm/dL Hct (34.0-46.0) % Glucose (74-99) mg/dL Plasma Lactic Acid Froylan 0.6 L (0.7-2.0) mmol/L Total Bilirubin (0.2-1.3) mg/dL Urine Appearance (Clear) Ur Specific [place] (1.001-1.035) Urine Protein (Negative) Urine Ketones (Negative) Urine Bacteria (None) /hpf Urine Mucus (None) /hpf Assessment and Plan (1) Acute pelvic pain Current Visit: Yes Status: Acute Code(s): R10.2 - PELVIC AND PERINEAL PAIN SNOMED Code(s): 698104333 (2) Hemorrhagic ovarian cyst Current Visit: Yes Status: Acute Code(s): N83.209 - UNSPECIFIED OVARIAN CYST, UNSPECIFIED SIDE SNOMED Code(s): 827542634 Plan: The patient had relatively minimal drop in hemoglobin from presentation to her most recent CBC drawn last night around midnight. The initial plan was to complete serial CBCs at 6 hour intervals to see if she is continuing to bleed but, for unclear reasons, this has not happened. As a result, a stat CBC is being ordered right now. I have discussed the natural history of her findings with her at length to include the options for proceeding to the operating room for diagnostic laparoscopy and likely evacuation of blood and clot and further examination ovary for ongoing bleeding. This was as opposed to continuing with conservative management should her hemoglobin be stable. In either case, she does have a relatively surgical abdomen and consideration could be made for proceeding to the operating room in either case. Further discussion with the patient will be carried out after the CBC has become available. She continues to remain with nothing by mouth until a decision regarding the operating room is made.
[2021-04-10 11:30] LABS: Basophils % (A) 1 %; Eosinophils % (A) 1 %; HCT 22.5 % (34.0-46.0); Lymphocytes % (A) 48 %; MCH 33.2 pg (25.0-35.0); MCHC 36.3 g/dL (31.0-37.0); MCV 91.4 fL (80.0-100.0); Mean Platelet Volume 7.7; Monocytes # (A) 0.2 k/uL (0-1.0); Monocytes % (A) 5 %; Neutrophils # (A) 1.8 k/uL (1.3-7.7); Neutrophils % (A) 43 %; Platelet Count 162 k/uL (150-450); RBC 2.46 m/uL (3.80-5.40); RDW 12.3 % (11.5-15.5); WBC 4.2 k/uL (4.0-11.0)
[2021-04-10 11:44] LABS: HGB 8.2 gm/dL (11.4-16.0)
--- NOTE | 2021-04-10 12:07 | P.PN ---
Subjective Progress Note Date: 04/10/21 Principal diagnosis: Acute pelvic pain The patient denies any significant changes from previous dictation. She continues to have fairly significant abdominal discomfort and pain. Objective - Vital Signs Vital signs: Vital Signs Temp 98.3 F 04/10/21 07:00 Pulse 70 04/10/21 07:00 Resp 18 04/10/21 07:00 BP 92/62 04/10/21 07:00 Pulse Ox 99 04/10/21 07:00 Intake & Output 04/09/21 04/10/21 04/10/21 18:59 06:59 18:59 Weight 52.163 kg Other: # Voids 1 - Exam Abdominal examination continues to show significant peritoneal signs with g uarding and rebound in the bilateral lower quadrants. - Labs CBC & Chem 7: 04/10/21 11:18 04/09/21 22:01 Labs: Abnormal Lab Results - Last 24 Hours (Table) 04/09/21 04/09/21 04/09/21 Range/Units 22:01 22:01 22:01 WBC (4.0-11.0) k/uL RBC 3.53 L (3.80-5.40) m/uL Hgb (11.4-16.0) gm/dL Hct 31.8 L (34.0-46.0) % Glucose 111 H (74-99) mg/dL Plasma Lactic Acid [place]ylan 2.1 H* (0.7-2.0) mmol/L Total Bilirubin 1.8 H (0.2-1.3) mg/dL Urine Appearance (Clear) Ur Specific [place] (1.001-1.035) Urine Protein (Negative) Urine Ketones (Negative) Urine Bacteria (None) /hpf Urine Mucus (None) /hpf 04/09/21 04/10/21 04/10/21 Range/Units 22:16 00:23 00:48 WBC 11.1 H (4.0-11.0) k/uL RBC 3.11 L (3.80-5.40) m/uL Hgb 10.1 L (11.4-16.0) gm/dL Hct 28.3 L (34.0-46.0) % Glucose (74-99) mg/dL Plasma Lactic Acid Froylan 2.1 H* (0.7-2.0) mmol/L Total Bilirubin (0.2-1.3) mg/dL Urine Appearance Cloudy H (Clear) Ur Specific [place] 1.037 H (1.001-1.035) Urine Protein 1+ H (Negative) Urine Ketones 1+ H (Negative) Urine Bacteria Rare H (None) /hpf Urine Mucus Many H (None) /hpf 04/10/21 04/10/21 Range/Units 04:18 11:18 WBC (4.0-11.0) k/uL RBC 2.46 L (3.80-5.40) m/uL Hgb 8.2 L D (11.4-16.0) gm/dL Hct 22.5 L (34.0-46.0) % Glucose (74-99) mg/dL Plasma Lactic Acid Froylan 0.6 L (0.7-2.0) mmol/L Total Bilirubin (0.2-1.3) mg/dL Urine Appearance (Clear) Ur Specific [place] (1.001-1.035) Urine Protein (Negative) Urine Ketones (Negative) Urine Bacteria (None) /hpf Urine Mucus (None) /hpf Assessment and Plan (1) Acute pelvic pain Current Visit: Yes Status: Acute Code(s): R10.2 - PELVIC AND PERINEAL PAIN SNOMED Code(s): 715617530 (2) Hemorrhagic ovarian cyst Current Visit: Yes Status: Acute Code(s): N83.209 - UNSPECIFIED OVARIAN CYST, UNSPECIFIED SIDE SNOMED Code(s): 134239484 Plan: Stat CBC has returned at a level of 8.2 which is significantly lower than her most recent CBC last night at midnight which was 10.1. As a result, I cannot guarantee that there is not ongoing bleeding in the abdomen and have recommended the patient undergo diagnostic and possible operative laparoscopy to evacuate the blood and examine the ovaries for ongoing bleeding. The risks and complications of the procedure been thoroughly discussed including the risk for bleeding, bleeding requiring transfusion, infection, and injury to local structures to specifically include the bowel, bladder, and ureters. She has understood all these risks and agreed to proceed. The intention would be for discharge later today assuming the patient remains hemodynamically stable.
[2021-04-10 13:42] VITALS: BMI 18.6
[2021-04-10] MEDS ORDERED: IV FLUID CONTINUATION 400 ML IV ONE (14:27)
[2021-04-10] MEDS ORDERED: ONDANSETRON 4 MG/2 ML VIAL IVP ONE (14:30)
[2021-04-10] MEDS ORDERED: DEXAMETHASONE SOD PHOSPHATE 4 MG/ML 1 ML VIAL IVP ONE (14:30)
[2021-04-10] MEDS ORDERED: PROPOFOL 10 MG/ML 20 ML VIAL IV ONE (14:32)
[2021-04-10] MEDS ORDERED: SUCCINYLCHOLINE CHLORIDE 100 MG/5 ML SYR IV ONE (14:32)
[2021-04-10] MEDS ORDERED: NEOSTIGMINE 1 MG/ML 10 ML VIAL ONE (14:32)
[2021-04-10] MEDS ORDERED: fentaNYL (PF) 50 MCG/ML 2 ML AMP ONE (14:32)
[2021-04-10] MEDS ORDERED: ROCURONIUM 10 MG/ML (5 ML VIAL) IV ONE (14:32)
[2021-04-10] MEDS ORDERED: GLYCOPYRROLATE 0.2 MG/ML 2 ML VIAL ONE (14:32)
[2021-04-10] MEDS ORDERED: LIDOCAINE 1% INJ 10MG/ML (20 ML MDV) ONE (14:32)
[2021-04-10] MEDS ORDERED: KETOROLAC 15 MG/ML 1 ML VIAL ONE (14:32)
[2021-04-10] MEDS ORDERED: BUPIVACAINE (PF) 0.25% 30 ML VIAL SQ ONE (14:58)
[2021-04-10] MEDS ORDERED: diphenhydrAMINE 50 MG/ML 1 ML VIAL IVP PRN (15:22)
[2021-04-10] MEDS ORDERED: IBUPROFEN 600 MG TAB PO PRN (15:22)
[2021-04-10] MEDS ORDERED: Acetaminophen-Codeine 300-30mg TAB PO PRN ×2 (15:22)
[2021-04-10] MEDS ORDERED: KETOROLAC 15 MG/ML 1 ML VIAL IVP PRN (15:22)
[2021-04-10] MEDS ORDERED: SIMETHICONE 80 MG CHEWABLE PO PRN (15:22)
[2021-04-10] MEDS ORDERED: METOCLOPRAMIDE 5 MG/ML 2 ML VIAL IVP PRN (15:22)
--- NOTE | 2021-04-10 15:32 | P.OP ---
Date of Procedure: 04/10/21 Preoperative Diagnosis: #1. Acute pelvic pain #2. Hemorrhagic ruptured ovarian cyst Postoperative Diagnosis: Same plus #3. Hemoperitoneum Procedure(s) Performed: #1. Diagnostic laparoscopy #2. Evacuation of hemoperitoneum Anesthesia: JAMAAL Surgeon: Rajat Isaac Seat Trimmer #1: Rosa Maria Rivero Estimated Blood Loss (ml): 2 IV fluids (ml): 150 Urine output (ml): 250 Pathology: none sent Condition: stable Disposition: PACU Operative Findings: See previously dictated notes for findings leading to surgery. Preoperative pelvic examination demonstrated a 4 week anteverted mobile normal shaped uterus with normal adnexa bilaterally. Intraoperatively, the abdomen was noted to have a significant amount of blood ultimately being estimated at approximate 700 mL. There was a small rent on the distal portion of the right ovary with a fairly significantly large blood vessel bleeding directly to the opening which was likely the source of the acute bleed. There was no ongoing bleeding from that site during the surgery. The remainder of the abdomen both upper and lower and pelvis was without pathology. This included the liver, gallbladder, and diaphragm. There was a small amount of blood in the paracolic gutters bilaterally which was evacuated with the suction lining parts sewer. The uterus, tubes, and ovaries were entirely normal to inspection otherwise. Description of Procedure: The patient was prepped and draped in usual fashion after general endotracheal anesthesia was administered by the anesthesiologist. 8 speculum was placed and the anterior lip of the cervix grasped with a single-tooth tenaculum allowing insertion of an acorn cannula for manipulation intraoperatively. The bladder was draining approximately 250 mL of clear roxie urine. Attention was turned to the abdomen where a half a centimeter incision was made in a semilunar fold of the umbilicus beneath the allowing insertion of a 5 mm optical trocar under direct visualization without difficulty. Blood was immediately noted upon entering the abdomen. A pneumoperitoneum was established and some Trendelenburg positioning utilized to sweep the bowel from the pelvis. A site was selected approximately 4-5 cm above the pubic symphysis in the midline where a 5 mm incision was made in the transverse plane allowing insertion of a 5 mm trocar under direct vision station without difficulty. The suction lining parts sewer was then introduced into the abdomen and approximately 600 mL of blood was suctioned from the pelvis. Thorough irrigation was then carried out and removed through suction as well. The lining parts sewer was replaced with a blunt probe which was utilized to elevate both ovaries at which time the right ovary was noted to have a small perhaps 2 mm rent in the distal portion with a large blood vessel bleeding directly to the opening. There was no ongoing bleeding. Attention was then turned to the upper abdomen where there was noted to be some blood in the paracolic gutters which was suctioned using the suction lining parts sewer. Both reverse Trendelenburg and Trendelenburg were utilized to try to remove as much blood from the abdomen as possible. Once this had been accomplished, the total estimated blood loss in the abdomen was approximately 700 mL. All instrumentation was then removed and the pneumoperitoneum thoroughly evacuated through the trocar sites. The skin was closed with interrupted subcuticular stitches of 4-0 Vicryl followed by half-inch Steri-Strips placed with Mastisol. The 2 incisions were infused with a total of 10 mL of quarter percent Marcaine without epinephrine equally infused between the 2 incisions. Estimated blood loss for the case itself was approximately 2 mL. All sponge, instrument, needle counts were correct. The patient tolerated the procedure well and proceeded to the recovery room in stable condition.
--- NOTE | 2021-04-10 15:37 | P.DS ---
Providers Date of admission: 04/10/21 00:23 Expected date of discharge: 04/10/21 Attending physician: Rajat Isaac Primary care physician: Stated None - Discharge Diagnosis(es) (1) Acute pelvic pain Current Visit: Yes Status: Acute (2) Hemorrhagic ovarian cyst Current Visit: Yes Status: Acute Hospital Course: The patient is a 20-year-old 0 para 0 who was admitted through the emergency room with acute onset of pelvic pain last night. CT imaging of the abdomen demonstrated what appeared to be findings consistent with a hemorrhagic ruptured ovarian cyst and her level of discomfort prompted admission for observation regarding stability from a hemodynamic perspective and for pain control. She was observed overnight and continued to have fairly significant pain. She was found to have a fairly rigid lower abdomen consistent with surgical abdomen and significant peritoneal signs. She was initially reticent to proceed with surgery but her hemoglobin dropped from 10.1 last night at midnight to approximately 8.2 at 11 AM this morning. Given the rapid decline I could not guarantee that there was no ongoing bleeding and strongly recommended we proceed with surgery to which she agreed. She was taken to the operating room where she underwent diagnostic laparoscopy with evacuation of hemoperitoneum. The source of the bleeding was found and was no longer bleeding. Following surgery she was observed for several hours and was to have a repeat hemoglobin performed approximately 3 hours after surgery. Assuming that the findings were stable and vital signs remained stable, the patient was to be discharged home to follow-up in the office in 2 weeks' time. Discharge instructions included calling for any significantly increased symptoms of a hemodynamic instability, significant pain, or anything else that concerned her. Discharge medications included a prescription for Tylenol 3, 1-2 by mouth every 6 hours when necessary pain, #20 dispensed with no refills. She was additionally to use [id number] analgesic pain medications as needed. Procedures: #1. Observation #2. Serial hemoglobin/hematocrit #3. Diagnostic laparoscopy with evacuation of hemoperitoneum Patient Condition at Discharge: Stable Plan - Discharge Summary Discharge Rx Participant: No New Discharge Prescriptions: No Action QUEtiapine [SEROquel] 100 mg PO HS Discharge Medication List QUEtiapine [SEROquel] 100 mg PO HS 04/09/21 [History] Follow up Appointment(s)/Referral(s): None,Stated [Primary Care Provider] - 1-2 days Rajat Isaac MD [STAFF PHYSICIAN] - 2 Weeks Discharge Disposition: HOME SELF-CARE
[2021-04-10] MEDS ORDERED: LACTATED RINGERS 1,000 ML IV ONE (15:49)
[2021-04-10 18:51] LABS: Basophils % (A) 0 %; Eosinophils % (A) 0 %; HCT 23.9 % (34.0-46.0); HGB 8.5 gm/dL (11.4-16.0); Lymphocytes # (A) 0.6 k/uL (1.0-4.8); Lymphocytes % (A) 10 %; MCH 32.7 pg (25.0-35.0); MCHC 35.5 g/dL (31.0-37.0); Mean Platelet Volume 8.2; Monocytes # (A) 0.1 k/uL (0-1.0); Monocytes % (A) 2 %; Neutrophils # (A) 4.9 k/uL (1.3-7.7); Neutrophils % (A) 88 %; Platelet Count 159 k/uL (150-450); RDW 12.4 % (11.5-15.5); WBC 5.6 k/uL (4.0-11.0)
[2021-04-10] MEDS: LACTATED RINGERS 1,000 ML IV SCH (21:15)
[2021-04-10] MEDS ORDERED: HYDROcodone/APAP 5-325MG 1 EACH TAB PO PRN (21:50)
[2021-04-10] MEDS: HYDROcodone/APAP 5-325MG 1 EACH TAB PO PRN (23:42)
[2021-04-11] MEDS: LACTATED RINGERS 1,000 ML IV SCH ×2 (01:18→08:38)
[2021-04-11] MEDS: HYDROcodone/APAP 5-325MG 1 EACH TAB PO PRN ×2 (02:33→08:45)
[2021-04-11] MEDS ORDERED: IBUPROFEN IV 800 MG in SODIUM CHLORIDE 0.9% 250 ML IV ONE (04:00)
[2021-04-11] MEDS: SODIUM CHLORIDE 0.9% 1,000 ML IV SCH ×3 (04:32→08:38)
[2021-04-11] MEDS: PANTOPRAZOLE 40 MG/10 ML VIAL IV SCH (08:37)
[2021-04-11] MEDS ORDERED: HYDROcodone/APAP 7.5-325MG 1 EACH TAB PO ONE (09:11)
--- NOTE | 2021-04-11 09:40 | P.PN ---
Subjective Progress Note Date: 04/11/21 Principal diagnosis: Postop day 1, laparoscopy for evacuation of hemoperitoneum secondary to hemorrhagic ovarian cyst This 21-year-old non patient was admitted for abdominal pain. On CAT scan it appeared there was blood within her abdominal cavity, acute blood loss anemia was diagnosed therefore patient was taken to the operating suite for operative laparoscopy with evacuation of hemoperitoneum. Patient surgery went well. For full details on the surgery please see the operative report. Patient has had significant pain control issues postoperatively. She is struggling with ambulation secondary to discomfort. Patient's vital signs remained stable. She is tearful today upon exam. Objective - Vital Signs Vital signs: Vital Signs Temp 98.0 F 04/11/21 07:00 Pulse 72 04/11/21 07:00 Resp 18 04/11/21 07:00 BP 94/56 04/11/21 07:00 Pulse Ox 97 04/11/21 07:00 Intake & Output 04/10/21 04/11/21 04/11/21 18:59 06:59 18:59 Intake Total 400 Output Total 950 Balance -550 Weight 52.163 kg Intake: IV 400 Output: Urine 250 Estimated Blood Loss 700 Other: Voiding Method Toilet # Voids 2 - Constitutional General appearance: Present: cooperative, no acute distress, thin - Labs CBC & Chem 7: 04/10/21 18:11 04/09/21 22:01 Labs: Abnormal Lab Results - Last 24 Hours (Table) 04/10/21 04/10/21 Range/Units 11:18 18:11 RBC 2.46 L 2.60 L (3.80-5.40) m/uL Hgb 8.2 L D 8.5 L (11.4-16.0) gm/dL Hct 22.5 L 23.9 L (34.0-46.0) % Lymphocytes # 0.6 L (1.0-4.8) k/uL Assessment and Plan (1) S/P laparoscopy Current Visit: Yes Status: Acute Code(s): Z98.890 - OTHER SPECIFIED POSTPROCEDURAL STATES SNOMED Code(s): 501701734 (2) Anemia Current Visit: Yes Status: Acute Code(s): D64.9 - ANEMIA, UNSPECIFIED SNOMED Code(s): 431714052 (3) Hemorrhagic ovarian cyst Current Visit: Yes Status: Acute Code(s): N83.209 - UNSPECIFIED OVARIAN CYST, UNSPECIFIED SIDE SNOMED Code(s): 546051203 Plan: This 20-year-old female status post operative laparoscopy with evacuation of hemoperitoneum remains hospitalized for pain control. Patient does have acute blood loss anemia. We will check hemoglobin this morning to reassess. Encouraged patient to increase ambulation as she has not gotten out of bed since surgery. Pain management is discussed. Pain medications are adjusted in addition. Will observe today, and if pain control improves consider discharge home later today.
[2021-04-11 10:14] LABS: ALT <8 U/L (8-44); AST 19 U/L (13-35); African American GFR (CKD) 152.1 (60.0-200.0); Alkaline Phosphatase 38 U/L (41-126); Calcium 7.8 mg/dL (8.7-10.3); Carbon Dioxide 21.5 mmol/L (21.6-31.8); Chloride 107 mmol/L (96-109); Globulin 1.7 g/dL (1.6-3.3); Glucose 68 mg/dL (70-110); Non-African American GFR(CKD) 131.2 (60.0-200.0); Potassium 3.7 mmol/L (3.5-5.5); Sodium 138 mmol/L (135-145); Total Bilirubin 1.8 mg/dL (0.2-1.2); Total Protein 5.1 g/dL (6.2-8.2)
[2021-04-11 10:41] LABS: Basophils # (A) 0.01 X 10*3/uL (0.00-0.10); Basophils % (A) 0.2 %; Eosinophils # (A) 0.01 X 10*3/uL (0.04-0.35); Eosinophils % (A) 0.2 %; Lymphocytes # (A) 1.68 X 10*3/uL (0.90-5.00); Lymphocytes % (A) 35.9 %; Monocytes # (A) 0.34 X 10*3/uL (0.20-1.00); Monocytes % (A) 7.3 %; Neutrophils # (A) 2.63 X 10*3/uL (1.80-7.70); Neutrophils % (A) 56.2 %
[2021-04-11 10:42] LABS: HCT 19.9 % (37.2-46.3); HGB 6.6 g/dL (12.0-15.0); MCH 31.3 pg (27.0-32.0); MCHC 33.2 g/dL (32.0-37.0); MCV 94.3 fL (80.0-97.0); Mean Platelet Volume 11.3 fL (9.5-12.2); Platelet Count 132 X 10*3/uL (140-440); RBC 2.11 X 10*6/uL (4.10-5.20); WBC 4.68 X 10*3/uL (4.50-10.00)
[2021-04-11] MEDS: HYDROcodone/APAP 7.5-325MG 1 EACH TAB PO PRN ×2 (14:37→20:24)
[2021-04-11 20:54] LABS: Basophils % (A) 0 %; Eosinophils # (A) 0.1 k/uL (0-0.7); Eosinophils % (A) 2 %; HCT 25.5 % (34.0-46.0); HGB 9.3 gm/dL (11.4-16.0); Lymphocytes # (A) 1.8 k/uL (1.0-4.8); Lymphocytes % (A) 38 %; MCHC 36.6 g/dL (31.0-37.0); MCV 90.1 fL (80.0-100.0); Mean Platelet Volume 7.7; Monocytes # (A) 0.3 k/uL (0-1.0); Monocytes % (A) 6 %; Neutrophils # (A) 2.5 k/uL (1.3-7.7); Neutrophils % (A) 53 %; Platelet Count 161 k/uL (150-450); RBC 2.83 m/uL (3.80-5.40); RDW 12.6 % (11.5-15.5); WBC 4.7 k/uL (4.0-11.0)
[2021-04-11] MEDS ORDERED: QUEtiapine 100 MG TAB PO SCH (21:00)
[2021-04-12] MEDS: HYDROcodone/APAP 7.5-325MG 1 EACH TAB PO PRN (05:47)
[2021-04-12] MEDS ORDERED: PANTOPRAZOLE 40 MG TABLET PO SCH (07:30)
[2021-04-12 07:35] VITALS: BP 95/56; PULSE 66; RESP 18; TEMP 98.1
--- NOTE | 2021-04-12 10:52 | P.DS ---
Providers Date of admission: 04/10/21 00:23 Expected date of discharge: 04/12/21 Attending physician: Rajat Isaac Primary care physician: Stated None - Discharge Diagnosis(es) (1) S/P laparoscopy Current Visit: Yes Status: Acute (2) Anemia Current Visit: Yes Status: Acute (3) Hemorrhagic ovarian cyst Current Visit: Yes Status: Acute (4) Acute blood loss anemia Current Visit: Yes Status: Acute Hospital Course: This 21-year-old non patient was admitted to the hospital on Tuesday with complaints of severe abdominal pain. Patient underwent CAT scan revealing suspected blood in the pelvis. Patient had serial beta hCGs which were noted to be dropping therefore patient was taken to the operating room for operative laparoscopy, hemorrhagic ovarian cyst was appreciated, evacuation of hemoperitoneum was preformed. Patient did well during the surgery. For full details on the surgery please see the operative report. Patient's postoperative course was complicated by poor pain control and acute blood loss anemia. On postoperative day #1 patient was very uncomfortable, necessitating increasing amounts of pain medication. Postoperative hemoglobin was noted to be 6.6, 1 unit of packed red blood cells was crossmatched and transfused. Patient's rebound hemoglobin noted to be 9.3. On this postoperative day #2 patient is feeling well. She states her pain is well-controlled mostly with ibuprofen, she is taking [place] 7.5's in addition. Patient is ambulating and voiding without difficulty. She is noting a small amount of vaginal bleeding most likely secondary to the surgery. This can be expected. Patient states she is feeling well and would like discharge home. Patient Condition at Discharge: Good Plan - Discharge Summary Discharge Rx Participant: No New Discharge Prescriptions: No Action QUEtiapine [SEROquel] 100 mg PO HS Discharge Medication List QUEtiapine [SEROquel] 100 mg PO HS 04/09/21 [History] Follow up Appointment(s)/Referral(s): Rajat Isaac MD [STAFF PHYSICIAN] - 2 Weeks Patient Instructions/Handouts: Exploratory Laparoscopy (DC), Exploratory Laparoscopy (IP) Activity/Diet/Wound Care/Special Instructions: IRON OTC Discharge Disposition: HOME SELF-CARE
== END 2021-04-12 12:00 | disposition home or self-care (01) ==
LOC: EC 19:47 → 6NMEDSUR 04-10 00:23
PROVIDERS: ADMIT Obstetrics & Gynecology; ATTEND Obstetrics & Gynecology
DX: K66.1 Hemoperitoneum (principal); N83.201 Unspecified ovarian cyst, right side; D62 Acute posthemorrhagic anemia; Z20.822 Contact with and (suspected) exposure to COVID-19; R06.02 Shortness of breath; R11.2 Nausea with vomiting, unspecified; R19.7 Diarrhea, unspecified; K58.9 Irritable bowel syndrome, unspecified; F41.9 Anxiety disorder, unspecified; F31.81 Bipolar II disorder; K64.4 Residual hemorrhoidal skin tags; K64.8 Other hemorrhoids; Z79.899 Other long term (current) drug therapy; Z91.018 Allergy to other foods; Z87.42 Personal history of other diseases of the female genital tract
CPT/HCPCS: 49322; 36430; 36415 ×2; 93005; 81025 ×2; 86900; 86901; 80053 ×2; 82150; 83605 ×2; 83690; 85025 ×3; 85610; 85730; 86850; 86920; 81001; 87635; 71045; 74177; G0378 ×3; P9016; J2270 ×2; J1200; J1100; J2710; J2765; J2405 ×2; J2001; J3010; J1885; J0330; J1741; J2704; C9113 ×2; Q9967

== ENCOUNTER 2022-05-26 10:45 | Emergency (ER) | payer BC ==
[2022-05-26] MEDS ORDERED: HYDROmorphone 0.5 MG/0.5 ML SYRINGE IM STA (13:01)
--- NOTE | 2022-05-26 14:14 | CT ---
EXAMINATION TYPE: CT facial bones wo con DATE OF EXAM: 05/26/2022 COMPARISON: HISTORY: left sided jaw pain and swelling CT DLP: 287.5 mGycm Automated exposure control for dose reduction was used. TECHNIQUE: CT scan of the sinuses is performed without contrast, axial images are obtained, coronal r eformatted images are also reviewed. FINDINGS: The paranasal sinuses including the frontal, ethmoid, sphenoid, and maxillary sinuses bila terally are well-aerated without abnormal opacification. The ostiomeatal complex is patent bilateral ly on the coronal images. Visualized portion of mastoid air cells show no abnormal opacification. The globes are intact bilate rally. Extensive soft tissue edema overlying the left lower facial structures. There is a left-side d tooth with periapical lucency. Correlation for periodontal disease. Shotty lymph nodes in the left submandibular space. Grossly submandibular and parotid glands are symmetric. IMPRESSION: 1. Extensive soft tissue edema but no diagnostic evidence of acute displaced fracture. 2. Correlate for left-sided periodontal disease.
[2022-05-26] MEDS ORDERED: LEVOFLOXACIN 750 MG TAB PO STA (14:59)
--- NOTE | 2022-05-26 15:00 | ED ---
General Adult HPI - General Chief complaint: Head Injury Stated complaint: revisit - jaw injury/swelling Time Seen by Provider: 05/26/22 12:23 Source: patient Mode of arrival: ambulatory Limitations: no limitations - History of Present Illness Initial comments: Patient is a 21-year-old female who presents to the emergency department for evaluation of left jaw pain. I personally evaluated patient in the emergency departments 3 days ago for syncopal episode. At this time patient did fall onto her face however denied pain at this time and did not have physical exam findings of injury. Patient states her jaw pain started 2 days ago. Patient noticed increased swelling yesterday. Denies fever, chills, neck pain, drooling, trouble swelling, pain with swallowing. Of note, patient obtained reveal of her syncopal episode. Patient does have concern that she had a seizure. I did watch the video myself. Patient sitting in chair with head down on hand. Patient falls out of chair and onto floor. Her friend turned her body from prone to supine during which there are possible tonic-clonic movements of the legs however this was difficult to assess due to quality of video. - Related Data Home Medications Medication Instructions Recorded Confirmed QUEtiapine FUMARATE [SEROquel XR] 300 mg PO DIRECTED 05/23/22 05/26/22 Vienva 1 tab PO DAILY 05/26/22 05/26/22 Previous Rx's Medication Instructions Recorded Penicillin V Potassium [Pen Vee K] 500 mg PO Q6H 10 Days #40 tablet 05/26/22 Allergies Allergy/AdvReac Type Severity Reaction Status Date / Time Pendroy And Derivatives Allergy Nausea & Verified 05/23/22 19:20 [Pendroy] Vomiting peppermint Allergy Anaphylaxis Verified 05/23/22 19:20 Review of Systems ROS Statement: Those systems with pertinent positive or pertinent negative responses have been documented in the HPI. ROS Other: All systems not noted in ROS Statement are negative. Past Medical History Past Medical History: Seizure Disorder Additional Past Medical History / Comment(s): IBS, internal and external hemorrhoids, Anemia History of Any Multi-Drug Resistant Organisms: None Reported Past Surgical History: No Surgical Hx Reported Additional Past Surgical History / Comment(s): colonoscopy Past Psychological History: Anxiety, Bipolar, Depression Smoking Status: Vaper Past Alcohol Use History: Occasional Past Drug Use History: Marijuana General Exam Limitations: no limitations General appearance: alert, in no apparent distress Eye exam: Present: normal appearance, PERRL, EOMI. Absent: scleral icterus, conjunctival injection, periorbital swelling ENT exam: Absent: normal oropharynx (periapical fluctuance under left bottom molar tooth) Neck exam: Present: normal inspection, lymphadenopathy (left submandibular). Absent: tenderness Respiratory exam: Present: normal lung sounds bilaterally. Absent: respiratory distress, wheezes, rales, rhonchi, stridor Cardiovascular Exam: Present: regular rate, normal rhythm, normal heart sounds. Absent: systolic murmur, diastolic murmur, rubs, gallop, clicks Neurological exam: Present: alert, oriented X3, CN II-XII intact Psychiatric exam: Present: normal affect, normal mood Skin exam: Present: warm, dry, intact, normal color. Absent: rash Course Vital Signs 05/26/22 05/26/22 05/26/22 10:52 16:02 18:20 Temperature 98.6 F 98.8 F Pulse Rate 122 H 88 75 Respiratory 20 16 16 Rate Blood Pressure 133/89 119/75 123/86 O2 Sat by Pulse 99 98 98 Oximetry Medical Decision Making - Medical Decision Making This is a 21-year-old female who presents with left mandibular jaw pain and 3 days. Thorough history and examination were performed. Patient is afebrile. There is swelling in the left mandibular region. Swelling is not bilateral. There is no neck swelling. There is periapical fluctuance under the left bottom molar tooth. Pain control with Dilaudid. Facial CT shows extensive soft tissue edema overlying the left lower facial structures. There is a left-sided tooth with periapical lucency. Results discussed with patient. and drainage was performed with 18-gauge needle. There was blood and some purulent output. Patient tolerated the procedure well with no complication. Patient will be sent home with Pen-Vee K. First dose was given in the emergency department. Patient's aunt states patient does not have a dentist. She is encouraged to call her insurance to find one taking new patients. Return parameters discussed.. Patient verbalizes understanding and is agreeable to plan. Of note, patient was referred to a neurologist for possible seizure activity. Denies any further seizure-like activity. Dr. Thomas is my attending. Disposition Clinical Impression: Mandibular swelling, Tooth infection, Jaw pain Disposition: HOME SELF-CARE Condition: Good Instructions (If sedation given, give patient instructions): Toothache (ED) Additional Instructions: Take medication as directed. Follow-up with dentist in 1-2 days. Follow-up with neurologist regarding concern for seizure activity. Return to the emergency department if you experience new, concerning, or worsening symptoms. Prescriptions: Penicillin V Potassium [Pen Vee K] 500 mg PO Q6H 10 Days #40 tablet Is patient prescribed a controlled substance at d/c from ED?: No Referrals: None,Stated [Primary Care Provider] - 1-2 days Kedar Sánchez MD [STAFF PHYSICIAN] - 1-2 days Time of Disposition: 15:52
[2022-05-26] MEDS ORDERED: PENICILLIN V POTASSIUM 250 MG TAB PO STA (15:08)
[2022-05-26] MEDS ORDERED: ACET/COD 300 MG/30 MG STARTER PACK 6 TAB BTL PO STA (15:51)
[2022-05-26 16:03] VITALS: RESP 16; TEMP 98.8
[2022-05-26] MEDS ORDERED: BENZOCAINE SPRAY 1 CAN MUCOUS MEM STA (16:14)
[2022-05-26] MEDS ORDERED: LORazepam 2 MG/ML INJ IM STA (16:15)
[2022-05-26] MEDS ORDERED: LORazepam 2 MG/ML INJ IV STA (17:23)
[2022-05-26] MEDS ORDERED: HYDROmorphone 1 MG/ML 1 ML SYRINGE IVP STA (17:34)
[2022-05-26 18:29] VITALS: BP 123/86; PULSE 75
== END 2022-05-26 19:19 | disposition home or self-care (01) ==
LOC: EC 10:45
DX: K08.89 Other specified disorders of teeth and supporting structures (principal); M27.2 Inflammatory conditions of jaws; F41.9 Anxiety disorder, unspecified; F31.9 Bipolar disorder, unspecified; F17.290 Nicotine dependence, other tobacco product, uncomplicated; F12.90 Cannabis use, unspecified, uncomplicated; Z91.018 Allergy to other foods; Z79.899 Other long term (current) drug therapy
CPT/HCPCS: 99283 ×2; 96374 ×2; 96375 ×2; 96372 ×2; 41800; 70486; J2060; J1170 ×2